=== PATIENT | male | born 1960 | race Caucasian/White ===

== ENCOUNTER → 2018-11-22 | Outpatient (CLI) | payer SELFPAY | END | disposition home or self-care (01) | LOC: PLD 08:08 → LAB SHORT 08:08 | DX: D10.9 Benign neoplasm of pharynx, unspecified (principal) | CPT/HCPCS: 88305 ==

== ENCOUNTER → 2021-10-30 | Outpatient (CLI) | payer BC | END | disposition home or self-care (01) | LOC: LAB SHORT 14:59 | DX: L02.91 Cutaneous abscess, unspecified (principal) | CPT/HCPCS: 87070; 87205 ==